=== PATIENT | male | born 1985 | race Caucasian/White ===

== ENCOUNTER 2016-04-27 23:12 | Emergency (ER) | payer OTHER ==
[~2016-04-27] VITALS: Ht 175.3 cm; Wt 81.6 kg
[2016-04-27 23:20] VITALS: BP 102/70; PULSE 114; RESP 18; TEMP 98.6; O2SAT 98
--- NOTE | 2016-04-27 23:30 | NUR ---
Patient placed in waiting room, Vital signs stable, MD aware of patient situation. Patient stating he needs a prescription for Xanax and "will leave if the doctor doesn't see me soon. I can't wait for hours." Patient advised to wait for MD evaluation.
--- NOTE | 2016-04-28 02:08 | NUR ---
Patient to [facility] for evaluation. Side rails up. Report given to YAA Puentes.
--- NOTE | 2016-04-28 02:09 | NUR ---
Pt came into the ER in stable condition. Pt c/o feeling anxious and needs Xanax. Pt c/o left leg pain 5/10 from past surgery. Pt presented to be very anxious and edgy. -sob -chest pain. No acute distress noted at this time, will continue to monitor
--- NOTE | 2016-04-28 02:11 | NUR ---
ER at bedside examining patient.
[2016-04-28] MEDS ORDERED: HYDROcodone/ACETAMIN 5-325 MG TAB (NORCO/ VICODIN) PO ONE (02:30)
[2016-04-28] MEDS ORDERED: ALPRAZolam 0.25 MG TABLET PO ONE (02:30)
[2016-04-28 02:44] VITALS: BP 102/70; PULSE 114; RESP 18; TEMP 98.6; O2SAT 98
--- NOTE | 2016-04-28 02:44 | NUR ---
Patient given written and verbal discharge instructions and verbalizes understanding. ER MD Dr. Suarez discussed with patient the results and treatment provided. Patient in stable condition. ID arm band removed. Rx of [place] 5, Xanax 2mg given. Patient educated on pain management and to follow up with PMD. Pain Scale 2/10. Opportunity for questions provided and answered.
== END 2016-04-28 02:44 | disposition home or self-care (01) ==
LOC: SED 23:12
DX: F41.9 Anxiety disorder, unspecified (principal); M79.605 Pain in left leg; G89.29 Other chronic pain; F32.9 Major depressive disorder, single episode, unspecified
CPT/HCPCS: 99283